=== PATIENT | female | born 1945 | race Caucasian/White ===

== ENCOUNTER → 2021-12-25 | Outpatient (CLI) | payer MEDICARE, OTHER ==
[~2021-12-25] MED LIST: AMLODIPINE BESYL5 MG PO; ARTIFICIAL TEAR15 M2 EYERT; ASPIRIN81 MG PO; BAYER BACK & B1 EACH PO; CARVEDILOL3.125 MG PO; CEFUROXIME250 MG PO; HYDROCHLOROTHIA25 MG PO; LIPITOR20 MG PO; PREDNISONE 10 M10 MG PO; VALACYCLOVIR1000 MG PO; VALACYCLOVIR500 MG PO
== END ==
LOC: CT 09:05
DX: D37.030 Neoplasm of uncertain behavior of the parotid salivary glands (principal)
CPT/HCPCS: 36415; 70491; 82565; 84520; Q9967

== ENCOUNTER → 2022-03-03 | Outpatient (CLI) | payer MEDICARE | LOC: LAB 14:48 | DX: Z20.822 Contact with and (suspected) exposure to COVID-19 (principal) | CPT/HCPCS: U0003 ==

== ENCOUNTER → 2022-04-23 | Outpatient (CLI) | payer MEDICARE | LOC: KOH-I 13:15 | DX: F17.210 Nicotine dependence, cigarettes, uncomplicated (principal); R91.8 Other nonspecific abnormal finding of lung field | CPT/HCPCS: 71271 ==

== ENCOUNTER → 2022-06-26 | Outpatient (CLI) | payer MEDICARE | LOC: CT 12:22 | DX: D11.0 Benign neoplasm of parotid gland (principal) | CPT/HCPCS: 36415; 70491; 82565; 84520; Q9967 ==